=== PATIENT | female | born 1985 | race Caucasian/White ===

== ENCOUNTER → 2018-04-30 | Outpatient (CLI) | payer BC ==
[2018-04-30 16:46] LABS: CREATININE 3.91 mg/dL (0.55-1.02)
[2018-04-30 16:48] LABS: ALKALINE PHOSPHATASE 343 U/L (45-117)
== END | disposition home or self-care (01) ==
LOC: RAD 14:47
PROVIDERS: ATTEND Internal Medicine
DX: C78.5 Secondary malignant neoplasm of large intestine and rectum (principal); C50.919 Malignant neoplasm of unspecified site of unspecified female breast; R94.5 Abnormal results of liver function studies; R10.9 Unspecified abdominal pain
CPT/HCPCS: 36415; 76700; 82565; 84075